=== PATIENT | female | born 1945 | race Caucasian/White ===

== ENCOUNTER 2017-07-11 11:19 | Emergency (ER) | payer MEDICARE, OTHER ==
[~2017-07-11] VITALS: Ht 165.1 cm; Wt 75.7 kg
[~2017-07-11 11:19] MED LIST: SULF1TAB47 PO; Z.0.NO CURRENT MEDS
[2017-07-11 11:20] VITALS: BP 200/90; PULSE 107; RESP 16; TEMP 98; O2SAT 99
[2017-07-11 11:30] VITALS: BP 165/85
[2017-07-11] MEDS ORDERED: AUGM875T3 PO (12:05)
--- NOTE | 2017-07-11 12:06 | PD ---
HPI Chief Complaint: ENT Complaint Time Seen by Provider: 12:00 Travel History International Travel<30 days: No Contact w/Intl Traveler<30days: No Traveled to known affect area: No History of Present Illness HPI 72 -year-old female here for evaluation of left ear pain 1 day. Also reports left sided frontal and maxillary sinus pressure. Denies fever or chills. Symptoms severity. No drainage from the ear. Has had previous ear infections in the past for similar symptoms. No aggravating or alleviating factors. PFSH Past Medical History Medical History: Denies Significant Hx Diminished Hearing: No Tetanus Vaccination: Unknown Influenza Vaccination: Yes ?: Not Menopausal: Yes : 2 Para: 2 Social History Alcohol Use: No Tobacco Use: No Substance Use: No Allergies-Medications (Allergen,Severity, Reaction): Coded Allergies: No Known Allergies (Verified Adverse Reaction, Unknown, 07/11/17) Reported Meds & Prescriptions Reported Meds & Active Scripts Active No Active Prescriptions or Reported Medications Review of Systems Except as stated in HPI: all other systems reviewed are Neg General / Constitutional: No: Fever HENT: Positive: Congestion, Earache Cardiovascular: No: Chest Pain or Discomfort Respiratory: No: Shortness of Breath Gastrointestinal: No: Abdominal Pain Physical Exam Narrative GENERAL: Alert, well-appearing 72-year-old female. SKIN: Warm and dry. No rash. HEAD: Normocephalic.+ Frontal/maxillary sinus tenderness EYES: No injection or drainage. EAR: Left TM erythema, bulging, loss of landmarks. No canal swelling or mastoid tenderness. NECK: Supple, trachea midline. No JVD or lymphadenopathy. CARDIOVASCULAR: Regular rate and rhythm RESPIRATORY: Breath sounds equal bilaterally. No accessory muscle use. Data Data Last Documented VS Vital Signs Date Time Temp Pulse Resp B/P (MAP) Pulse Ox O2 Delivery O2 Flow Rate FiO2 07/11/17 11:30 165/85 (111) 07/11/17 11:20 98.0 107 16 99 MDM Medical Decision Making Medical Screen Exam Complete: Yes Emergency Medical Condition: Yes Differential Diagnosis Otitis media, sinusitis, URI Narrative Course 72 -year-old female here with left ear pain and sinus pain/pressure. She has evidence of otitis media/sinusitis. She'll be treated with Augmentin. Diagnosis Primary Impression: Otitis media Qualified Codes: H66.90 - Otitis media, unspecified, unspecified ear Referrals: Primary Care Physician Additional Instructions: Take [id number] Tylenol or ibuprofen as needed for pain. Follow-up with the primary doctor Scripts Amoxicillin-Clavulanate (Augmentin) 875-125 Mg Tab 1 TAB PO BID for Infection, #20 TAB 0 Refills Prov: Angela Cherry 07/11/17 Disposition: 01 DISCHARGE HOME Condition: Stable Angela Cherry Jul 11, 2017 12:06
== END 2017-07-11 12:16 | disposition home or self-care (01) ==
LOC: PHEFT 11:19
DX: H66.90 Otitis media, unspecified, unspecified ear (principal)
CPT/HCPCS: 99283

== ENCOUNTER 2017-07-20 15:57 | Emergency (ER) | payer MEDICARE, OTHER ==
[~2017-07-20] VITALS: Ht 165.1 cm; Wt 76.0 kg
[~2017-07-20 15:57] MED LIST changes: +AUGM875T3 PO; -SULF1TAB47 PO; -Z.0.NO CURRENT MEDS
[2017-07-20 16:01] VITALS: BP 180/76; PULSE 90; RESP 16; TEMP 98.1; O2SAT 96
[2017-07-20] MEDS ORDERED: AUGM875T3 PO (16:56)
--- NOTE | 2017-07-20 16:57 | PD ---
HPI Chief Complaint: ENT Complaint Time Seen by Provider: 16:36 Travel History International Travel<30 days: No Contact w/Intl Traveler<30days: No Traveled to known affect area: No History of Present Illness HPI 72 y/o female with left ear "fullness". She was treated previously for otitis media with amoxicillin. She reports symptoms improvement but she continues to have fullness in the left ear. She denies fever or chills. Symptom severity is moderate. No aggravating or alleviating factors. PFSH Past Medical History Medical History: Denies Significant Hx Diminished Hearing: No Menopausal: Yes : 2 Para: 2 Social History Alcohol Use: No Tobacco Use: No Substance Use: No Allergies-Medications (Allergen,Severity, Reaction): Coded Allergies: No Known Allergies (Verified Adverse Reaction, Unknown, 07/20/17) Reported Meds & Prescriptions Reported Meds & Active Scripts Active Augmentin (Amoxicillin-Clavulanate) 875-125 Mg Tab 1 Tab PO BID Review of Systems Except as stated in HPI: all other systems reviewed are Neg General / Constitutional: No: Fever HENT: Positive: Earache Physical Exam Narrative GENERAL: Alert well-appearing 9-year-old female SKIN: Warm and dry. HEAD: Normocephalic. EYES: No injection or drainage. EARS: Left TM erythema, bulging, loss of landmarks. No canal swelling or drainage. No mastoid tenderness. NECK: Supple, trachea midline. No JVD or lymphadenopathy. CARDIOVASCULAR: Regular rate and rhythm without murmurs, gallops, or rubs. RESPIRATORY: Breath sounds equal bilaterally. No accessory muscle use. Data Data Last Documented VS Vital Signs Date Time Temp Pulse Resp B/P (MAP) Pulse Ox O2 Delivery O2 Flow Rate FiO2 07/20/17 16:01 98.1 90 16 180/76 (110) 96 MDM Medical Decision Making Medical Screen Exam Complete: Yes Emergency Medical Condition: Yes Differential Diagnosis otitis media, otitis externa, serous otitis Narrative Course 72 y/o female with left ear "fullness". She was treated previously for otitis media with amoxicillin. She reports symptoms improvement but she continues to have fullness in the left ear. On exam she has left TM erythema, bulging, loss of landmarks. No canal swelling. No mastoid tenderness. She will be treated with Augmentin Diagnosis Primary Impression: Otitis media Qualified Codes: H66.90 - Otitis media, unspecified, unspecified ear Referrals: Primary Care Physician Additional Instructions: Take [id number] Zyrtec or Claritin Scripts Amoxicillin-Clavulanate (Augmentin) 875-125 Mg Tab 1 TAB PO BID for Infection, #10 TAB 0 Refills Prov: Angela Cherry 07/20/17 Disposition: 01 DISCHARGE HOME Condition: Stable Angela Cherry Jul 20, 2017 16:57
== END 2017-07-20 17:04 | disposition home or self-care (01) ==
LOC: PHEFT 15:57
DX: H66.92 Otitis media, unspecified, left ear (principal)
CPT/HCPCS: 99283